=== PATIENT | male | born 1995 | race Caucasian/White ===

== ENCOUNTER 2024-08-13 09:38 | Emergency (ER) | payer OTHER, SELFPAY ==
--- NOTE | ~2024-08-13 | XR_ITS ---
EXAMINATION: XR hand LT min 3V DATE: 08/13/2024 10:09 INDICATION: Hyperextension injury to the third and fourth proximal interphalangeal joints. TECHNIQUE: Posteroanterior, lateral and oblique views of the left hand were obtained. COMPARISON: None. FINDINGS: There is periarticular soft tissue swelling about the left third and fourth proximal interphalangeal joints. There is a small likely minimally distracted avulsion fracture fragment along the volar yeison n of the fourth proximal phalanx. No acute appearing donor site appreciated and cannot exclude that t his is related to earlier trauma. No other fractures identified. Joint spaces are normal. IMPRESSION: 1. Small age-indeterminate minimally distracted likely volar plate avulsion fracture at the base of t he left fourth middle phalanx. Reviewed, dictated and finalized at location A. RETE PILE DRIVER OPERATOR IMPRESSION: 1. Small age-indeterminate minimally distracted likely volar plate avulsion fra cture at the base of the left fourth middle phalanx.
[2024-08-13 09:58] VITALS: BP 144/77; PULSE 62; RESP 16; TEMP 36.8; O2SAT 99
--- OUTSIDE RECORDS SUMMARY | 2024-08-13 10:19 | XMS_ITS | Referral Summary ---
Author Organization [facility] Address [address] [place] [address] Care Team Providers Care Bradley Linebacker Crewmember Name Role Phone Unavailable Primary Care Provider Unavailabl e Source Comments [facility],non-owned Affiliates and Associated Physician Practices is amultiple site organization consisting of ambulatory clinics and hospital sitesin [place], [place], [place] and [place]. This disclosure is being madepursuant to the Care Everywhere program and may not contain all informatio navailable regarding this patient. Last updated 18.[facility] Allergies No known active allergies Immunizations Name Administration Dates Next Due MENINGOCOCCAL CONJUGATE (MCV4P) 06/25/2018 Social History Tobacco Use Types Packs/Day Years Used Date Smoking Tobacco: Never Assessed Sex and Gender Information Value Date Recorded Sex Assigned at Not on file Gender Identity Not on file Sexual Orientation Not on file Plan of Treatment Not on file
--- OUTSIDE RECORDS SUMMARY | 2024-08-13 10:19 | XMS_ITS | Clinical Summary ---
Author Organization [facility] Address [address] [place] [address] Phone Care Team Providers Care Manager Transportation Name Role Phone Hesham Portillo MD Primary Care Provider [phone] Active Problems Problem Noted Date Diagnosed Date Adjustment disorder 01/19/2020 Family History Relation Name Status Comments Brother Alive Father Alive Mother Alive Social History Tobacco Use Types Packs/Day Years Used Date Smoking Tobacco: Never Smokeless Tobacco: Never Alcohol Use Standard Drinks/Week Comments Yes 0 (1 standard drink = 0.6 oz pur e alcohol) 4 seltzers about 1x wk PHQ-2 Answer Date Recorded Total Score - Questions 1-9 1 01/06 Sexually Active Control Partners Comments Not Currently Female Sex and Gender Information Value Date Recorded Sex Assigned at Not on file Legal Sex Male 9:01 PM CDT Gender Identity Not on file Sexual Orientation Not on file Plan of Treatment Health Maintenance Due Date Last Done Comments Hepatitis C Virus (HCV) Screening 1995 Influenza Immunization (#1) 2024 SARS-COV-2 Immunization ( season) 2024 12/15/2020, 11/24/2020 Respiratory Syncytial Virus (RSV) Immunization (Adult) (1 - 1-dose 75+ series) 2072 Hepatitis B Immunization Completed 998, 1995, 1995 Meningococcal Immunization (ACWY) Completed 09/09/2013, 01/28/2009 DTaP/Tdap/Td Immunization Discontinued 2013, 01/28/2009, 07/22/2002, Additional history exists TdaP Immunization Completed 12/18/2013 Human Papillomavirus (HPV) Immunization Discontinued 06/02/2014, 12/18/2013, 09/09/2013 Meningococcal B Immunization Discontinued 06/17/2018 Pneumococcal Immunization Combined Aged Out No longer eligible based on patient's age to complete this topic Rotavirus Immunization Aged Out No lo nger eligible based on patient's age to complete this topic Goals Goal Patient Goal Type Associated Problems Recent Progress Patient-Stated? Author Behavioral Health Behavioral Health Improving(09/2019 4:50 PM CDT) Yes Renetta Ortega LCSW Note: GOAL: I want to be able to stop being so rigid. Goal Reviewed with: patient Readiness to change: Ready to change Department associated with goal: [facility] Steps to achieve goal: 1. César will learn cognitive strategies to manage compulsive behavior 2. César will learn skills to interrupt his rigidity Behavioral Health Behavioral Health Improving(09/2019 4:50 PM CDT) No Renetta Ortega LCSW Note: GOAL: César will cope with the break up with his girlfriend more effectively Goal Reviewed with: patient Readiness to change: Ready to change Department associated with goal: [facility] Steps to achieve goal: 1. César will process thoughts and feelings related to the break up with his girlfriend Insurance ([employer]) [address] [id number] [facility] Care Teams Manager Transportation Relationship Specialty Start Date End Date Hesham Portillo MD [address] [facility] [address] [place] [address] PCP - General Internal Medicine 01/13/20
--- OUTSIDE RECORDS SUMMARY | 2024-08-13 10:19 | XMS_ITS | Clinical Summary ---
Author Organization [facility] Address [address] [place] [address] Care Team Providers Care Process Mold Technician Name Role Phone Unavailable Primary Care Provider Unavailabl e Source Comments [facility],non-owned Affiliates and Associated Physician Practices is amultiple site organization consisting of ambulatory clinics and hospital sitesin [place], [place], [place] and [place]. This disclosure is being madepursuant to the Care Everywhere program and may not contain all information available regarding this patient. Last updated 18.[employer] [facility] [facility] Allergies No known active allergies Immunizations Name Administration Dates Next Due MENINGOCOCCAL CONJUGATE (MCV4P) 06/25/2018 Social History Tobacco Use Types Packs/Day Years Used Date Smoking Tobacco: Never Assessed Sex and Gender Information Value Date Recorded Sex Assigned at Not on file Gender Identity Not on file Sexual Orientation Not on file Plan of Treatment Health Maintenance Due Date Last Done Comments HIV SCREENING 2012 HEPATITIS C SCREENING 03/05/2015 DTAP/TDAP/TD VACCINES (1 - Tdap) 2016 HEPATITIS B VACCINE (1 of 3 - 19+ 3-dose series) 2016 COVID-19 VACCINE ( - 2023-2 5 season) 2024 INFLUENZA VACCINE (#1) 2024 DEPRESSION SCREENING 07/09/2024 ZOSTER VACCINE (1 of 2) 2047 MENINGOCOCCAL VACCINE Aged Out 06/25/2018 No to shawn eligible based on patient's age to complete this topic HIB VACCINE Aged Out No longer eligi ble based on patient's age to complete this topic HPV VACCINE Aged Out No longer eligi ble based on patient's age to complete this topic MENINGOCOCCAL (Group B) VACCINE Aged Out No longer eligible based on patient's age to complete this topic PNEUMOCOCCAL VACCINE Aged Out No long er eligible based on patient's age to complete this topic
--- OUTSIDE RECORDS SUMMARY | 2024-08-13 10:19 | XMS_ITS | Patient Health Summary ---
Author Organization [facility] Address [address] [place] [address] Care Team Providers Care Insert Cutter Name Role Phone Unavailable Primary Care Provider Unavailabl e Note from [facility],non-owned Affiliates and Associated Physician Practices is amultiple site organization consisting of ambulatory clinics and hospital sitesin [place], [place], [place] and [place]. This disclosure is being madepursuant to the Care Everywhere program and may not contain all information available regarding this patient. Last updated 18.[facility] Allergies No known active allergies Immunizations * MENINGOCOCCAL CONJUGATE (MCV4P)(Given 06/25/2018) Social History Tobacco Use Types Packs/Day Years Used Date Smoking Tobacco: Never Assessed Sex and Gender Information Value Date Recorded Sex Assigned at Not on file Gender Identity Not on file Sexual Orientation Not on file
--- NOTE | 2024-08-13 10:24 | ED_ITS ---
HPI - General Adult General Chief complaint: Extremity Injury, Upper Stated complaint: Left Middle Finger Injury Time Seen by Provider: 08/13/24 10:13 Source: patient, RN notes reviewed and old records reviewed Mode of arrival: ambulatory Limitations: no limitations History of Present Illness HPI narrative: 29-year-old male who presents to [facility] with complaints of injury to his left middle finger and ring finger which occurred last Sunday when he and his brother were hoarsing around and he put is left hand up to block a kick. Patient reports swelling and pain mainly to his left middle finger bur with some mild discomfort to the ring finger also with minimal swelling noted. Patient has full range of motion to his fingers of left hand but with some discomfort. Patient has strong left radial pulse with sensation intact. Patient is right hand dominant. MD complaint: pain and swelling left middle and ring finger Onset (ago): day(s) (10) Location: left and upper extremity (middle and ring finger) Severity: mild Treatments prior to arrival: none Related Data Home Medications ?Medication ?Instructions ?Recorded ?Confirmed ?Last Taken ?Type No Home Medications 08/13/24 08/13/24 Unknown History Allergies Allergy/AdvReac Type Severity Reaction Status Date / Time No Known Allergies Allergy Verified 08/13/24 09:58 Review of Systems 2 Review of Systems: CONSTITUTIONAL: Denies fever, chills, or sweats. EYES: Denies visual changes, redness, or discharge. ENT: Denies rhinorrhea, congestion, sore throat, or otalgia. CARDIOVASCULAR: Denies chest pain, palpitations, or edema. RESPIRATORY: Denies cough or dyspnea. GASTROINTESTINAL: Denies abdominal pain, nausea, vomiting, or diarrhea. GENITOURINARY: Denies dysuria or hematuria. SKIN: Denies rash or itching. MUSCULOSKELETAL: Denies back pain, positive for pain and swelling to the left middle finger and also ring finger, or myalgia. NEUROLOGIC: Denies headache, numbness, or weakness. PSYCHIATRIC: Denies anxiety or depression. All systems reviewed & are unremarkable except as noted in HPI and below PMFSH Social History Social History (Updated 08/14/24 @ 10:55 by Olga Dubois NP) Smoking status: Never smoker Alcohol intake: current Alcohol use details: social Substance use type: does not use Living arrangements: with family Gender identity (if verbalized by the patient): Male Comments At time of signature, agree with nursing past medical, surgical, social and family history. There is no relevant family history pertinent to the presenting complaint Exam Narrative: GENERAL: Well-appearing, well-nourished, and in no acute distress. HEAD: Normocephalic, atraumatic. EYES: PERRLA and EOMI. ENT: Nares clear, no rhinorrhea or epistaxis. Mucous membranes moist. NECK: Supple. no lymphadenopathy CHEST: Clear to auscultation. No respiratory distress. SAO2 99% on room air HEART: Regular rate and rhythm. No murmur heard. Normal peripheral pulses. ABDOMEN: Soft, nontender, nondistended, normal active bowel sounds. EXTREMITIES: Normal range of motion. No edema. Exception noted to left middle and ring finger with swelling present with some discomfort, patient is able to move fingers well but with some discomfort and swelling present. strong left radial pulse sensation is intact. no bruising noted SKIN: Warm, dry, no rash. NEURO: No focal deficits. Alert and oriented x3. Course Course Emergency Course: Patient is aware of diagnosis, understands and agrees to treatment plan.? Anticipatory guidance given.? Patient agrees to follow-up as directed and is aware of reasons to seek care at the emergency department. Portions of this record may have been created with voice recognition software Level of Care: Express Care Visit Vital Signs Vital signs: Vital Signs Temperature 36.8 C 08/13/24 09:58 Pulse Rate 62 08/13/24 09:58 Respiratory Rate 16 08/13/24 09:58 Blood Pressure 144/77 H 08/13/24 09:58 Pulse Oximetry 99 08/13/24 09:58 Oxygen Delivery Room Air 08/13/24 09:58 Temperature 36.8 C 08/13/24 09:58 Pulse Rate 62 08/13/24 09:58 Respiratory Rate 16 08/13/24 09:58 Blood Pressure 144/77 H 08/13/24 09:58 Pulse Oximetry 99 08/13/24 09:58 Oxygen Delivery Room Air 08/13/24 09:58 Reviewed Medical Decision Making MDM Narrative Medical decision making narrative: Exam findings and imaging show no acute concerns or changes; patient is non- toxic appearing and is in no distress.? Patient is appropriate for outpatient treatment and follow-up Differential Diagnosis Differential Diagnosis: contusion to left middle and ring finger, avulsion fracture left ring finger sprain or strain of left middle and ring finger, swelling middle and ring finger left hand Medical Records Medical records reviewed: Yes I reviewed the external patient's medical records. Vital Signs Vital Signs: Vital Signs Temperature 36.8 C 08/13/24 09:58 Pulse Rate 62 08/13/24 09:58 Respiratory Rate 16 08/13/24 09:58 Blood Pressure 144/77 H 08/13/24 09:58 Pulse Oximetry 99 08/13/24 09:58 Oxygen Delivery Room Air 08/13/24 09:58 Temperature 36.8 C 08/13/24 09:58 Pulse Rate 62 08/13/24 09:58 Respiratory Rate 16 08/13/24 09:58 Blood Pressure 144/77 H 08/13/24 09:58 Pulse Oximetry 99 08/13/24 09:58 Oxygen Delivery Room Air 08/13/24 09:58 reviewed Imaging Data Attestation: I personally reviewed and interpreted this imaging study as follows: My impression: small age--indeterminant minimally distracted likely volar plate avulsion fracture at the base of the left fourth middle phalanx Radiologist's impression: [address] [place] [id number] XRay Report Signed Patient: Merritt Hoskins : 1995 MR#: [id number] Age: 29 Acct:[id number] Loc: [facility] ADM Date: 08/13/24Attending Dr: Ordering Physician: Olga Dubois APRN Date of Service: 08/13/24 Procedure(s): XR hand LT min 3V Accession Number(s): [id number] cc: Miguel, Laura Galdamez; Olga Dubois APRN~ EXAMINATION: XR hand LT min 3V DATE: 08/13/2024 10:09 INDICATION: Hyperextension injury to the third and fourth proximal interphalangeal joints. TECHNIQUE: Posteroanterior, lateral and oblique views of the left hand were obtained. COMPARISON: None. FINDINGS: There is periarticular soft tissue swelling about the left third and fourth proximal interphalangeal joints. There is a small likely minimally distracted avulsion fracture fragment along the volar margin of the fourth proximal phalanx. No acute appearing donor site appreciated and cannot exclude that this is related to earlier trauma. No other fractures identified. Joint spaces are normal. IMPRESSION: 1. Small age-indeterminate minimally distracted likely volar plate avulsion fracture at the base of the left fourth middle phalanx. Reviewed, dictated and finalized at location A. REFORMING MACHINE OPERATOR Please be advised this is a medical document. It is intended for [id number] communication. It is written in medical language and may contain unfamiliar abbreviations or verbiage. Medical documents are intended to carry relevant information, facts as evident, and the clinical opinion of the practitioner at the time of the encounter. This report may have been done utilizing a voice recognition system. Attempts have been made to correct errors. However, there may be uncorrected grammatical, spelling, and recognition errors present. The file time of this note does not necessarily represent the time of service. Dictated By: Gal Perales MD 08/13/24 1011 Signed By: <Electronically signed by Gal Perales MD in OV> Critical Care Time Critical Care Time Critical Care Time: No Discharge Plan Discharge Clinical Impression: Avulsion fracture of middle phalanx of finger Qualifiers: Encounter type: initial encounter Fracture type: closed Qualified Code(s): S62. 629A - Displaced fracture of middle phalanx of unspecified finger, initial encounter for closed fracture Patient Disposition: Home, Self-Care Condition: Stable Instructions: Antibiotic Form, Avulsion Fracture (ED) Additional Instructions: Patient refuses finger splint Tylenol for lesser pain Ibuprofen regularly for the next 2-3 days for the inflammation Follow-up with orthopedic or hand surgeon if any further complaints or pain Follow-up with PCP if further problems or concerns Ice to the area 20-30 minutes 4-6 times a day Elevate above heart If your symptoms persist, change or worsen significantly before you can contact your personal physician then please, without delay, go to the emergency department for further evaluation. Follow-up with PCP in 7-10 days or sooner if needed Follow up with PCP soon in regards to your blood pressure which is elevated above threshold for referral. Blood pressure above 120/80 may indicate pre- hypertension. 144/77 Patient Language: Taiwanese Prescriptions: No Action No Home Medications Follow-up/Referrals: Miguel,Laura Galdamez [Primary Care Provider] - Time of Disposition: 10:36 Quality [place] Coma Scale Eyes: Open Verbal: Oriented and Alert Motor: Follows Commands Rosio Coma Total Score: 15
== END 2024-08-13 10:25 | disposition home or self-care (01) ==
PROVIDERS: Emergency Provider Registered Nurse; PCP Nurse Practitioner
DX: S62.625A Displaced fracture of middle phalanx of left ring finger, initial encounter for closed fracture (principal); W50.0XXA Accidental hit or strike by another person, initial encounter; Y93.83 Activity, rough housing and horseplay
CPT/HCPCS: 73130; 99213; G0463